=== PATIENT | male | born 2005 | race Caucasian/White ===

== ENCOUNTER 2024-02-02 22:20 | Emergency (ER) | payer OTHER ==
[~2024-02-02] VITALS: Ht 177.8 cm; Wt 120.0 kg
[2024-02-02 22:26] VITALS: TEMP 98.1; O2SAT 96
[2024-02-02] MEDS: SODIUM CHLORIDE 0.9% 1,000 ML IV ONE (22:30)
[2024-02-03 06:12] VITALS: BP 103/67; PULSE 67; RESP 18
== END 2024-02-03 06:33 | disposition home or self-care (01) ==
LOC: ER 22:20
DX: T40.711A Poisoning by cannabis, accidental (unintentional), initial encounter (principal); F12.10 Cannabis abuse, uncomplicated; Z00.00 Encounter for general adult medical examination without abnormal findings; Y92.9 Unspecified place or not applicable
CPT/HCPCS: 80320; 36415; 99283; J7030; G0480